=== PATIENT | male | born 1990 ===

== ENCOUNTER 2021-02-21 15:10 | Emergency (ER) | payer SELFPAY ==
--- NOTE | 2021-02-21 15:34 | EDM.PDOC ---
ED HPI GENERAL MEDICAL PROBLEM - General Chief Complaint: Respiratory Problem Stated Complaint: SLIGHT COUGH/BLOOD IN MUCUS Time Seen by Provider: 02/21/21 15:17 - History of Present Illness INITIAL COMMENTS - FREE TEXT/NARRATIVE: History of present illness: [] The patient had a having cough yesterday. When he coughs deeply gets phlegm. When he coughs and clears his throat he gets a little bit of blood. He does have a mild sore throat . He is not short of breath. He does not have fever but he does have chills since yesterday. He is not vaccinated for Covid and he does not think he has been exposed. Patient had asthma as a child. Review of systems: As per history of present illness and below otherwise all systems reviewed and negative. Past medical history: As per history of present illness and as reviewed below otherwise noncontributory. Surgical history: As per history of present illness and as reviewed below otherwise noncontributory. Social history: No reported history of drug or alcohol abuse. Family history: As per history of present illness and as reviewed below otherwise noncontributory. Physical exam: Constitutional - well developed, well-nourished and in no acute distress HEENT -slight hyperemia of the posterior pharynx otherwise normocephalic, no evidence of trauma - external nose and mouth normal - no mass in neck and no JVD - mucosae moist EYES - full EOM, PERRL, no icterus - no evidence of inflammation, injection, or drainage Respiratory - no respiratory distress, equal bilateral expansion, lungs clear to auscultation and no abnormal lung sounds Cardiovascular - Regular Rhythm with S1 and S2 appreciated and no murmur, gallop or rub. GI - abdomen soft without distension or organomegaly - normal bowel sounds - no guard or rebound Musculoskeletal no gross deformity of long bones or joints - no tenderness, swelling or edema Neurologic - Alert and oriented times four - CN II-XII grossly intact - motor sensory and coordination symmetrically normal Psychiatric - appropriate mood and affect with normal thought content Hematologic - No petechiae or purpura - mucosa appropriate color and sclera not pale - normal nail bed color and refill Integument - no rash or evidence of trauma - normal turgor Diagnostics: [] Therapeutics: [] Impression: [] Plan: [] Definitive disposition and diagnosis as appropriate pending reevaluation and review of above. - Related Data Allergies Allergy/AdvReac Type Severity Reaction Status Date / Time No Known Allergies Allergy Verified 02/21/21 15:29 Home Meds: Home Meds . [No Known Home Meds] 02/21/21 [History] Social & Family History - Tobacco Use Second Hand Smoke Exposure: No - Caffeine Use Caffeine Use: Reports: None - Recreational Drug Use Recreational Drug Use: No ED ROS GENERAL - Review of Systems Review Of Systems: Comprehensive ROS is negative, except as noted in HPI. ED EXAM, GENERAL - Physical Exam Exam: See Below Free Text/Narrative:: My physical exam is in HPI Course - Vital Signs Text/Narrative:: Patient is positive for COVID-19 and has an infiltrate in the right upper lobe on the x-ray. The patient could possibly have a blood clot and I will do a D- dimer to screen and if positive will do a CT angio if negative we will send him home with Covid instructions. Last Recorded V/S: Last Vital Signs Temp 36.4 C 02/21/21 15:26 Pulse 85 02/21/21 15:26 Resp 20 02/21/21 15:26 BP 127/77 02/21/21 15:26 Pulse Ox 99 02/21/21 15:26 - Orders/Labs/Meds Labs: Laboratory Tests 02/21/21 02/21/21 02/21/21 Range/Units 15:34 15:34 17:11 WBC (4.0-11.0) K/uL RBC (4.50-5.90) M/uL Hgb (13.0-17.0) g/dL Hct (38.0-50.0) % MCV (80.0-98.0) fL MCH (27.0-32.0) pg MCHC (31.0-37.0) g/dL RDW Std Deviation (28.0-62.0) fl RDW Coeff of Ace (11.0-15.0) % Plt Count (150-400) K/uL MPV (7.40-12.00) fL Neut % (Auto) (48.0-80.0) % Lymph % (Auto) (16.0-40.0) % Thayer % (Auto) (0.0-15.0) % Eos % (Auto) (0.0-7.0) % Baso % (Auto) (0.0-1.5) % Neut # (Auto) (1.4-5.7) K/uL Lymph # (Auto) (0.6-2.4) K/uL Thayer # (Auto) (0.0-0.8) K/uL Eos # (Auto) (0.0-0.7) K/uL Baso # (Auto) (0.0-0.1) K/uL Nucleated RBC % /100WBC Nucleated RBCs # K/uL D-Dimer, Quantitative 0.33 (0.0-0.50) mg/L FEU SARS-CoV-2 RNA (RICHY) POSITIVE H (NEGATIVE) Group A Strep (PCR) NOT DETECTED (NOT DETECT) 02/21/21 Range/Units 17:11 WBC 5.06 (4.0-11.0) K/uL RBC 5.26 (4.50-5.90) M/uL Hgb 16.9 (13.0-17.0) g/dL Hct 47.0 (38.0-50.0) % MCV 89.4 (80.0-98.0) fL MCH 32.1 H (27.0-32.0) pg MCHC 36.0 (31.0-37.0) g/dL RDW Std Deviation 41.6 (28.0-62.0) fl RDW Coeff of Ace 13 (11.0-15.0) % Plt Count 160 (150-400) K/uL MPV 9.90 (7.40-12.00) fL Neut % (Auto) 64.6 (48.0-80.0) % Lymph % (Auto) 23.5 (16.0-40.0) % Thayer % (Auto) 11.3 (0.0-15.0) % Eos % (Auto) 0.4 (0.0-7.0) % Baso % (Auto) 0.2 (0.0-1.5) % Neut # (Auto) 3.3 (1.4-5.7) K/uL Lymph # (Auto) 1.2 (0.6-2.4) K/uL Thayer # (Auto) 0.6 (0.0-0.8) K/uL Eos # (Auto) 0.0 (0.0-0.7) K/uL Baso # (Auto) 0.0 (0.0-0.1) K/uL Nucleated RBC % 0.0 /100WBC Nucleated RBCs # 0 K/uL D-Dimer, Quantitative (0.0-0.50) mg/L FEU SARS-CoV-2 RNA (RICHY) (NEGATIVE) Group A Strep (PCR) (NOT DETECT) - Re-Assessments/Exams Free Text/Narrative Re-Assessment/Exam: 02/21/21 17:48 Covid with hemoptysis because me did consider pulmonary embolus but D-dimer 0.33 so patient is discharged with Covid pneumonia instructions Departure - Departure Time of Disposition: 17:48 Disposition: Home, Self-Care 01 Condition: Good Clinical Impression: Pneumonia due to COVID-19 virus, Hemoptysis - Discharge Information Instructions: Hemoptysis, Symptoms of COVID-19 - [facility] (06/23/2020), COVID-19 Vaccine Information, COVID-19: What to Do If You Are Sick- [facility] (07/16/2020), COVID-19: Quarantine vs. Isolation - [facility] (04/17/2020), Frequently Asked Questions About COVID-19 Vaccination - [facility] (10/14/2020), COVID-19 Referrals: PCP,None [Primary Care Provider] - Forms: ED Department Discharge Additional Instructions: [facility] - Primary Care [address] [place] [id number] [place] [address] The following information is given to patients seen in the emergency department who are being discharged to home. This information is to outline your options for follow-up care. We provide all patients seen in our emergency department with a follow-up referral. The need for follow-up, as well as the timing and circumstances, are variable depending upon the specifics of your emergency department visit. If you don't have a primary care physician on staff, we will provide you with a referral. We always advise you to contact your personal physician following an emergency department visit to inform them of the circumstance of the visit and for follow-up with them and/or the need for any referrals to a consulting specialist. The emergency department will also refer you to a specialist when appropriate. This referral assures that you have the opportunity for follow-up care with a specialist. All of these measure are taken in an effort to provide you with optimal care, which includes your follow-up. Under all circumstances we always encourage you to contact your private physician who remains a resource for coordinating your care. When calling for follow-up care, please make the office aware that this follow-up is from your recent emergency room visit. If for any reason you are refused follow-up, please contact the [facility] Emergency Department at and asked to speak to the emergency department charge nurse. Sepsis Event Note (ED) - Evaluation Sepsis Screening Result: No Definite Risk - Focused Exam Vital Signs: Vital Signs Temp Pulse Resp BP Pulse Ox 02/21/21 15:26 36.4 C 85 20 127/77 99
--- NOTE | 2021-02-21 16:43 | CR ---
Indication: Hemoptysis Technique: Portable chest Comparison: No comparison Findings: Normal cardiac mediastinal silhouette. Questionable right upper lobe strandy opacity could be related to infiltrate. Left lung appears clear no effusion no pneumothorax. Dictated by Kathryn Martins MD @ 02/21/2021 4:42:36 PM (Electronically Signed)
== END 2021-02-21 18:05 | disposition home or self-care (01) ==
LOC: MW.ED 15:10
DX: U07.1 COVID-19 (principal); J12.82 Pneumonia due to coronavirus disease 2019; R04.2 Hemoptysis
CPT/HCPCS: 36415; 71045; 71045-26; 85025; 85379; 87651-QW; 99283-25; U0002